=== PATIENT | female | born 1950 | race Caucasian/White ===

== ENCOUNTER 2022-01-05 15:46 | Inpatient (IN) | payer MEDICARE, MEDICAID ==
[~2022-01-05] VITALS: Ht 149.9 cm; Wt 52.8 kg
[2022-01-05] MEDS ORDERED: METOCLOPRAMIDE HCL 10MG/2ML VIAL IV ONE (16:15)
[2022-01-05] MEDS ORDERED: ACETAMINOPHEN 325MG TABLET PO ONE (17:00)
[2022-01-05 17:40] LABS: BASOPHILS % 0.2 % (0.0-2.0); EOSINOPHILS % 0.3 % (0.0-5.0); HEMATOCRIT. 36.3 % (36.0-48.0); HEMOGLOBIN. 12.7 g/dL (12.0-16.0); LYMPHOCYTES % 24.6 % (20.0-50.0); MEAN CORPUSCULAR HEMOGLOBIN 31.2 pg (28.0-32.0); MEAN CORPUSCULAR VOLUME 89.3 fL (81.0-99.0); MEAN PLATELET VOLUME 6.7 fl (7.4-10.4); MONOCYTES % 7.1 % (2.0-8.0); NEUTROPHILS % 67.8 % (40.0-76.0); PLATELET 427 x1000/uL (130-400); RED BLOOD CELL COUNT 4.07 mill/uL (4.2-5.4); RED CELL DISTRIBUTION WIDTH 13.8 % (11.6-14.6)
[2022-01-05 17:50] LABS: CHLORIDE 86 mEq/L (98-107)
[2022-01-05 17:57] LABS: ETHANOL BLOOD < 10 mg/dL
[2022-01-05] MEDS ORDERED: METOCLOPRAMIDE HCL 10MG/2ML VIAL IV SCH (18:15)
[2022-01-05 18:57] LABS: CLARITY URINE CLEAR (CLEAR); COLOR URINE YELLOW (YELLOW); KETONES URINE NEGATIVE (NEGATIVE); LEUKOCYTE ESTERASE URINE TRACE (NEGATIVE); NITRITE URINE NEGATIVE (NEGATIVE); OCCULT BLOOD URINE TRACE (NEGATIVE); PROTEIN URINE TRACE (NEGATIVE); SPECIFIC GRAVITY URINE 1.011 (1.005-1.030); UROBILINOGEN URINE 0.2 E.U./dL (0.2-1.0)
[2022-01-05 19:11] LABS: *AMPHETAMINES SCREEN URINE NEGATIVE (NEGATIVE); *BARBITURATES SCREEN URINE NEGATIVE (NEGATIVE); *BENZODIAZEPINES SCREEN URINE NEGATIVE (NEGATIVE); *COCAINE SCREEN URINE NEGATIVE (NEGATIVE); CANNABINOID URINE SCREEN NEGATIVE (NEGATIVE); METHADONE URINE SCREEN NEGATIVE (NEGATIVE); OPIATES URINE SCREEN NEGATIVE (NEGATIVE); PHENCYCLIDINE URINE SCREEN NEGATIVE (NEGATIVE)
[2022-01-05] MEDS ORDERED: ZOLPIDEM TARTRATE 5MG TABLET PO PRN (21:00)
[2022-01-05] MEDS ORDERED: INSULIN LISPRO 100 UNITS/ML SUBCUT SCH (21:00)
[2022-01-05] MEDS ORDERED: DIPHENHYDRAMINE 50MG/ML VIAL IV PRN (21:00)
[2022-01-05] MEDS ORDERED: ONDANSETRON HCL 4MG/2ML INJ IV PRN (21:00)
[2022-01-05] MEDS ORDERED: DEXTROSE 50% WATER 50ML SYRINGE IV PRN (21:00)
[2022-01-05] MEDS ORDERED: HYDRALAZINE 20MG/ML VIAL IV PRN (21:00)
[2022-01-05] MEDS ORDERED: ACETAMINOPHEN 325MG TABLET PO PRN ×2 (21:00)
[2022-01-05] MEDS ORDERED: CLONIDINE 0.1MG TABLET PO PRN (21:00)
[2022-01-05] MEDS ORDERED: HYDROCODONE/ACETAMINOPHEN 10/325MG TABLET PO PRN (21:00)
[2022-01-05] MEDS: SODIUM CHLORIDE 0.9% 1,000 ML IV SCH (21:30)
[2022-01-05] MEDS ORDERED: METHYLPREDNISOLONE SOD SUCC 125 MG/2 ML VIAL IV SCH (22:00)
[2022-01-05] MEDS ORDERED: METHYLPREDNISOLONE SOD SUCC IV SCH (22:00)
[2022-01-05] MEDS ORDERED: DEXTROSE 5% IV SCH (22:00)
[2022-01-05] MEDS ORDERED: WATER IV SCH (22:00)
[2022-01-05] MEDS: FAMOTIDINE 20MG TABLET PO SCH (22:40)
[2022-01-05] MEDS: BLOOD SUGAR DIAGNOSTIC STRIP TEST SCH (22:50)
[2022-01-05] MEDS: INSULIN LISPRO 100 UNITS/ML SUBCUT SCH (23:01)
[2022-01-05] MEDS ORDERED: NALOXONE HCL 0.4MG/ML VIAL IV PRN (23:15)
[2022-01-05] MEDS: ONDANSETRON HCL 4MG/2ML INJ IV PRN (23:25)
[2022-01-06 04:00] VITALS: BP 154/77
[2022-01-06 05:00] VITALS: BP 130/75
[2022-01-06] MEDS ORDERED: METO25TA6 PO (05:10)
[2022-01-06] MEDS ORDERED: GABA-529 PO (05:10)
[2022-01-06] MEDS ORDERED: LOSA25TA26 PO (05:10)
[2022-01-06] MEDS ORDERED: ASPI-1406 PO (05:10)
[2022-01-06] MEDS ORDERED: ATOR40TA70 PO (05:10)
[2022-01-06] MEDS ORDERED: OMEP20CA14 PO (05:10)
[2022-01-06] MEDS ORDERED: PRED1TAB PO (05:10)
[2022-01-06] MEDS ORDERED: MYCO500T PO (05:10)
[2022-01-06] MEDS ORDERED: INSNOV SUBCUT (05:11)
[2022-01-06] MEDS ORDERED: METHYLPREDNISOLONE SOD SUCC 125 MG/2 ML VIAL IV SCH (06:00)
[2022-01-06] MEDS: SODIUM CHLORIDE 0.9% 1,000 ML IV SCH ×2 (06:38→17:33)
[2022-01-06] MEDS: BLOOD SUGAR DIAGNOSTIC STRIP TEST SCH ×4 (07:40→21:24)
[2022-01-06 08:00] VITALS: BP 101/74
[2022-01-06 08:31] LABS: BASOPHILS % 0.1 % (0.0-2.0); HEMOGLOBIN. 13.7 g/dL (12.0-16.0); MEAN CORPUSCULAR HEMOGLOBIN 30.5 pg (28.0-32.0); MEAN PLATELET VOLUME 7.3 fl (7.4-10.4); MONOCYTES % 0.5 % (2.0-8.0); NEUTROPHILS % 72.4 % (40.0-76.0); PLATELET 389 x1000/uL (130-400); RED BLOOD CELL COUNT 4.49 mill/uL (4.2-5.4); RED CELL DISTRIBUTION WIDTH 13.5 % (11.6-14.6)
[2022-01-06] MEDS ORDERED: PREDNISONE 20MG TABLET PO SCH (09:00)
[2022-01-06] MEDS: INSULIN LISPRO 100 UNITS/ML SUBCUT SCH ×4 (09:11→21:39)
[2022-01-06] MEDS: FAMOTIDINE 20MG TABLET PO SCH (09:11)
[2022-01-06 12:00] VITALS: BP 139/74
[2022-01-06] MEDS ORDERED: HYDROCODONE/ACETAMINOPHEN 5/325MG TABLET PO PRN (14:45)
[2022-01-06] MEDS ORDERED: NALOXONE HCL 0.4MG/ML VIAL IV PRN (14:45)
[2022-01-06 16:00] VITALS: BP 147/64
[2022-01-06 17:02] LABS: CHLORIDE 90 mEq/L (98-107)
[2022-01-06 17:10] LABS: CREATINE KINASE 64 IU/L (26-192); PHOSPHORUS 3.7 mg/dL (2.5-4.9)
[2022-01-06] MEDS: ONDANSETRON HCL 4MG/2ML INJ IV PRN (17:31)
[2022-01-06 20:00] VITALS: BP 145/60
[2022-01-06] MEDS ORDERED: MYCOPHENOLATE MOFETIL 250MG CAPSULE PO SCH (21:00)
[2022-01-06] MEDS: METOPROLOL TARTRATE 25MG TABLET PO SCH (21:36)
[2022-01-06] MEDS: ATORVASTATIN CALCIUM 40MG TABLET PO SCH (21:36)
[2022-01-06] MEDS: OMEPRAZOLE 20MG CAPSULE EXTENDED RELEASE PO SCH (21:36)
[2022-01-07] VITALS: BP 130/56
[2022-01-07 01:13] LABS: CHLORIDE 93 mEq/L (98-107)
[2022-01-07 01:27] LABS: PHOSPHORUS 3.6 mg/dL (2.5-4.9)
[2022-01-07 04:00] VITALS: BP 123/65
[2022-01-07] MEDS: INSULIN LISPRO 100 UNITS/ML SUBCUT SCH ×4 (05:11→21:40)
[2022-01-07] MEDS: BLOOD SUGAR DIAGNOSTIC STRIP TEST SCH ×4 (05:11→21:40)
[2022-01-07] MEDS: OMEPRAZOLE 20MG CAPSULE EXTENDED RELEASE PO SCH ×2 (05:43→21:33)
[2022-01-07 08:00] VITALS: BP 123/56
[2022-01-07 08:04] LABS: BASOPHILS % 0.1 % (0.0-2.0); EOSINOPHILS % 0.2 % (0.0-5.0); HEMATOCRIT. 39.3 % (36.0-48.0); HEMOGLOBIN. 13.7 g/dL (12.0-16.0); LYMPHOCYTES % 22.8 % (20.0-50.0); MEAN CORPUSCULAR HEMOGLOBIN 31.4 pg (28.0-32.0); MEAN CORPUSCULAR VOLUME 90.1 fL (81.0-99.0); MEAN PLATELET VOLUME 7.2 fl (7.4-10.4); NEUTROPHILS % 67.9 % (40.0-76.0); PLATELET 423 x1000/uL (130-400); RED BLOOD CELL COUNT 4.37 mill/uL (4.2-5.4); RED CELL DISTRIBUTION WIDTH 13.7 % (11.6-14.6)
[2022-01-07] MEDS: ASPIRIN 81MG EC TABLET PO SCH (09:17)
[2022-01-07] MEDS: METOPROLOL TARTRATE 25MG TABLET PO SCH ×2 (09:17→21:39)
[2022-01-07] MEDS: PREDNISONE 1MG TABLET PO SCH (09:17)
[2022-01-07 09:21] LABS: CHLORIDE 96 mEq/L (98-107)
[2022-01-07 09:29] LABS: PHOSPHORUS 3.5 mg/dL (2.5-4.9)
[2022-01-07 12:00] VITALS: BP 171/58
[2022-01-07] MEDS: LOSARTAN POTASSIUM 25 MG TABLET PO SCH (12:32)
[2022-01-07] MEDS: ONDANSETRON HCL 4MG/2ML INJ IV PRN (14:13)
[2022-01-07 16:00] VITALS: BP 118/66
[2022-01-07 20:00] VITALS: BP 142/70
[2022-01-07] MEDS: MYCOPHENOLATE MOFETIL 500MG TABLET PO SCH (21:33)
[2022-01-07] MEDS: ATORVASTATIN CALCIUM 40MG TABLET PO SCH (21:33)
[2022-01-08 00:27] VITALS: BP 123/53
[2022-01-08 04:00] VITALS: BP 121/62
[2022-01-08 07:16] LABS: BASOPHILS % 0.1 % (0.0-2.0); EOSINOPHILS % 0.7 % (0.0-5.0); HEMOGLOBIN. 13.6 g/dL (12.0-16.0); LYMPHOCYTES % 31.2 % (20.0-50.0); MEAN PLATELET VOLUME 7.2 fl (7.4-10.4); PLATELET 415 x1000/uL (130-400); RED CELL DISTRIBUTION WIDTH 13.8 % (11.6-14.6)
[2022-01-08] MEDS ORDERED: FAMOTIDINE 20MG TABLET PO SCH (07:40)
[2022-01-08 08:00] VITALS: BP 118/78
[2022-01-08] MEDS: BLOOD SUGAR DIAGNOSTIC STRIP TEST SCH ×3 (08:06→17:40)
[2022-01-08] MEDS: INSULIN LISPRO 100 UNITS/ML SUBCUT SCH ×3 (08:06→18:10)
[2022-01-08] MEDS: ASPIRIN 81MG EC TABLET PO SCH (09:07)
[2022-01-08] MEDS: MYCOPHENOLATE MOFETIL 500MG TABLET PO SCH (09:07)
[2022-01-08] MEDS: LOSARTAN POTASSIUM 25 MG TABLET PO SCH (09:08)
[2022-01-08] MEDS: PREDNISONE 1MG TABLET PO SCH (09:08)
[2022-01-08] MEDS: METOPROLOL TARTRATE 25MG TABLET PO SCH (09:10)
[2022-01-08 10:19] LABS: CHLORIDE 101 mEq/L (98-107)
[2022-01-08 10:25] LABS: PHOSPHORUS 3.1 mg/dL (2.5-4.9)
[2022-01-08 12:00] VITALS: BP 120/77
[2022-01-08 16:00] VITALS: BP 130/88
== END 2022-01-08 18:25 | disposition home or self-care (01) | DRG 641 ==
LOC: ER 16:06 → MICUSO 23:14 → EDBEDREQ 23:19 → EDBEDREQTM 23:19 → 7WST 01-06 04:38
PROVIDERS: ADMIT Internal Medicine; ATTEND Internal Medicine
DX: E87.1 Hypo-osmolality and hyponatremia (principal); M33.20 Polymyositis, organ involvement unspecified; I10 Essential (primary) hypertension; M81.0 Age-related osteoporosis without current pathological fracture; R51.9 Headache, unspecified; E11.9 Type 2 diabetes mellitus without complications; E78.00 Pure hypercholesterolemia, unspecified; E78.5 Hyperlipidemia, unspecified; D72.819 Decreased white blood cell count, unspecified; Z93.1 Gastrostomy status; Z79.899 Other long term (current) drug therapy; Z87.19 Personal history of other diseases of the digestive system; Z82.49 Family history of ischemic heart disease and other diseases of the circulatory system
CPT/HCPCS: 36415; 80048; 80053; 80305; 80320; 81003; 82085; 82550; 82570; 82962; 83036; 83735; 83935; 84100; 84300; 84443; 84550; 85025; 85651; 93005; 97162; 99285; C1893; J0360; J1815; J2405; J2765; J2930; J7060; J7512; J7517; G0480

== ENCOUNTER 2022-01-23 14:03 | Inpatient (IN) | payer MEDICARE, MEDICAID ==
[~2022-01-23] VITALS: Ht 157.5 cm; Wt 61.2 kg
[~2022-01-23 14:03] MED LIST: ASPI-1406 PO; ATOR40TA70 PO; GABA-529 PO; INSNOV SUBCUT; LOSA25TA26 PO; METO25TA6 PO; MYCO500T PO; OMEP20CA14 PO; PRED1TAB PO
[2022-01-23] MEDS ORDERED: LORAZEPAM 0.5MG TABLET PO ONE (14:45)
[2022-01-23 16:14] LABS: BASOPHILS % 0.3 % (0.0-2.0); EOSINOPHILS % 0.6 % (0.0-5.0); HEMATOCRIT. 33.8 % (36.0-48.0); HEMOGLOBIN. 11.8 g/dL (12.0-16.0); LYMPHOCYTES % 22.7 % (20.0-50.0); MEAN CORPUSCULAR HEMOGLOBIN 31.2 pg (28.0-32.0); MEAN CORPUSCULAR VOLUME 89.4 fL (81.0-99.0); MEAN PLATELET VOLUME 6.5 fl (7.4-10.4); MONOCYTES % 7.6 % (2.0-8.0); NEUTROPHILS % 68.8 % (40.0-76.0); PLATELET 377 x1000/uL (130-400); RED BLOOD CELL COUNT 3.78 mill/uL (4.2-5.4); RED CELL DISTRIBUTION WIDTH 13.3 % (11.6-14.6)
[2022-01-23 16:33] LABS: CHLORIDE 89 mEq/L (98-107)
[2022-01-23] MEDS ORDERED: SODIUM CHLORIDE 0.9% 1,000 ML IV ONE ×2 (17:00→23:30)
[2022-01-23] MEDS ORDERED: HYDROCODONE/ACETAMINOPHEN 5/325MG TABLET PO PRN (23:00)
[2022-01-23] MEDS ORDERED: MAGNESIUM/ALUMINUM HYDROXIDE/SIMETHICONE 30ML UDC PO PRN (23:00)
[2022-01-23] MEDS ORDERED: DEXTROSE 50% WATER 50ML SYRINGE IV PRN (23:00)
[2022-01-23] MEDS ORDERED: GUAIFENESIN 200MG/10ML SUGAR FREE UDC PO PRN (23:00)
[2022-01-23] MEDS ORDERED: ACETAMINOPHEN 325MG TABLET PO PRN ×2 (23:00)
[2022-01-23] MEDS ORDERED: CLONIDINE 0.1MG TABLET PO PRN (23:00)
[2022-01-23] MEDS ORDERED: DOCUSATE SODIUM 100MG CAPSULE PO PRN (23:00)
[2022-01-23] MEDS ORDERED: IPRATROPIUM/ALBUTEROL 0.5-3(2.5)MG/3ML NEB HHN PRN (23:00)
[2022-01-23] MEDS ORDERED: ONDANSETRON HCL 4MG/2ML INJ IV PRN (23:00)
[2022-01-23 23:30] VITALS: BP 157/68
[2022-01-23] MEDS ORDERED: POLYVINYL ALCOHOL OPHTH DROPS 15ML BOTHEYE PRN (23:30)
[2022-01-23] MEDS ORDERED: ZOLPIDEM TARTRATE 5MG TABLET PO PRN (23:30)
[2022-01-23] MEDS ORDERED: NALOXONE HCL 0.4MG/ML VIAL IV PRN (23:30)
[2022-01-24] MEDS: BLOOD SUGAR DIAGNOSTIC STRIP TEST SCH ×2 (06:43→12:20)
[2022-01-24] MEDS ORDERED: *PATIENT'S OWN MEDICATION STORAGE XX SCH (07:00)
[2022-01-24] MEDS ORDERED: OMEPRAZOLE 20MG CAPSULE EXTENDED RELEASE PO SCH (07:20)
[2022-01-24] MEDS: INSULIN LISPRO 100 UNITS/ML SUBCUT SCH ×2 (07:50→12:50)
[2022-01-24 08:00] VITALS: BP 160/69
[2022-01-24] MEDS ORDERED: LOSARTAN POTASSIUM 25 MG TABLET PO SCH ×2 (08:00→09:00)
[2022-01-24] MEDS ORDERED: LOSARTAN POTASSIUM 50 MG TABLET PO SCH (08:00)
[2022-01-24 08:09] LABS: HDL CHOLESTEROL 51 mg/dL (40-59); LDL CHOLESTEROL 64 mg/dL (5-100); T4 FREE 1.07 ng/dL (0.76-1.46)
[2022-01-24 08:18] LABS: CHLORIDE 101 mEq/L (98-107)
[2022-01-24] MEDS ORDERED: ENOXAPARIN 40MG/0.4ML SYR SUBCUT SCH (09:00)
[2022-01-24] MEDS ORDERED: METOPROLOL TARTRATE 25MG TABLET PO SCH (09:00)
[2022-01-24] MEDS ORDERED: ATORVASTATIN CALCIUM 40MG TABLET PO SCH (09:00)
[2022-01-24] MEDS ORDERED: ASPIRIN 81MG EC TABLET PO SCH (09:00)
[2022-01-24] MEDS ORDERED: PREDNISONE 20MG TABLET PO SCH (09:00)
[2022-01-24] MEDS ORDERED: MYCOPHENOLATE MOFETIL 500MG TABLET PO SCH (09:00)
[2022-01-24 09:37] LABS: TOTAL IRON BINDING CAPACITY 343 ug/dL (250-450)
[2022-01-24 09:59] LABS: FOLIC ACID (FOLATE) SERUM >20 ng/mL ng/mL (>5.38); VITAMIN B12 SERUM 1099 pg/mL (211-911)
[2022-01-24 10:17] LABS: BASOPHILS % 0.3 % (0.0-2.0); EOSINOPHILS % 1.6 % (0.0-5.0); HEMATOCRIT. 36.3 % (36.0-48.0); HEMOGLOBIN. 12.1 g/dL (12.0-16.0); LYMPHOCYTES % 23.3 % (20.0-50.0); MEAN CORPUSCULAR HEMOGLOBIN 29.9 pg (28.0-32.0); MEAN CORPUSCULAR VOLUME 89.3 fL (81.0-99.0); MEAN PLATELET VOLUME 7.1 fl (7.4-10.4); MONOCYTES % 10.2 % (2.0-8.0); NEUTROPHILS % 64.6 % (40.0-76.0); PLATELET 348 x1000/uL (130-400); RED BLOOD CELL COUNT 4.07 mill/uL (4.2-5.4); RED CELL DISTRIBUTION WIDTH 13.4 % (11.6-14.6)
[2022-01-24 12:00] VITALS: BP 155/79
[2022-01-24] MEDS ORDERED: GABAPENTIN 300MG CAPSULE PO SCH (21:00)
== END 2022-01-24 16:00 | disposition home health service (06) | DRG 641 ==
LOC: ER 14:03 → 6EST 18:03
PROVIDERS: ADMIT Hospitalist; ATTEND Hospitalist
DX: E87.1 Hypo-osmolality and hyponatremia (principal); E87.8 Other disorders of electrolyte and fluid balance, not elsewhere classified; D64.9 Anemia, unspecified; E11.9 Type 2 diabetes mellitus without complications; E78.00 Pure hypercholesterolemia, unspecified; F41.9 Anxiety disorder, unspecified; E78.5 Hyperlipidemia, unspecified; R51.9 Headache, unspecified; K59.00 Constipation, unspecified; I10 Essential (primary) hypertension; M81.0 Age-related osteoporosis without current pathological fracture; F41.0 Panic disorder [episodic paroxysmal anxiety]; Z82.49 Family history of ischemic heart disease and other diseases of the circulatory system; Z93.1 Gastrostomy status
CPT/HCPCS: 36415; 80053; 80061; 82607; 82746; 82962; 83036; 83540; 83550; 83930; 84439; 84443; 84484; 85025; 85651; 93005; 93970; 99285; J1650; J7030; J7512; J7517